=== PATIENT | female | born 1980 | race Caucasian/White ===

== ENCOUNTER 2016-11-14 11:40 | Emergency (ER) | payer MEDICAID ==
[~2016-11-14] VITALS: Ht 165.1 cm; Wt 67.8 kg
[2016-11-14] MEDS ORDERED: KETOROLAC 30 MG/1 ML IM ONE (12:00)
[2016-11-14] MEDS ORDERED: LIDOCAINE 1%, 20ML SQ ONE (12:00)
[2016-11-14] MEDS ORDERED: ONDANSETRON ODT 4 MG PO ONE (12:00)
[2016-11-14] MEDS ORDERED: BUPIVACAINE/PF-EPI 0.25% 1:200K SQ ONE (12:00)
[2016-11-14] MEDS ORDERED: BENZOCAINE 20% SPRAY 0.5ML ONE (12:12)
[2016-11-14] MEDS ORDERED: BUPIVACAINE 0.25% ONE (12:12)
[2016-11-14] MEDS ORDERED: KETOROLAC 30 MG/1 ML ONE (12:12)
[2016-11-14] MEDS ORDERED: LIDOCAINE 1%, 20ML ONE (12:13)
[2016-11-14] MEDS ORDERED: ONDANSETRON ODT 4 MG ONE (12:13)
[2016-11-14] MEDS ORDERED: BENZOCAINE 20% SPRAY 0.5ML TP ONE (12:30)
[2016-11-14 12:46] VITALS: BP 132/75
== END 2016-11-14 12:49 | disposition home or self-care (01) ==
LOC: ED 12:04
DX: K02.9 Dental caries, unspecified (principal); Z90.49 Acquired absence of other specified parts of digestive tract
CPT/HCPCS: 64400; 96372; 99284; J1885; Q0162

== ENCOUNTER 2017-01-07 18:54 | Emergency (ER) | payer MEDICAID ==
[~2017-01-07] VITALS: Ht 165.1 cm; Wt 65.9 kg
[2017-01-07] MEDS ORDERED: KETOROLAC 30 MG/1 ML IM ONE (19:30)
[2017-01-07] MEDS ORDERED: HYDROcodone/APAP 5/325 TABLET PO ONE (19:30)
[2017-01-07] MEDS ORDERED: DIAZEPAM 5 MG TABLET PO ONE (19:30)
[2017-01-07] MEDS ORDERED: DIAZEPAM 5 MG/ML, 2ML IM STA (20:11)
[2017-01-07] MEDS ORDERED: HYDROmorphone 1 MG/ML, 1ML IM STA (20:11)
[2017-01-07] MEDS ORDERED: PROMETHAZINE 25 MG/ML, 1ML IM STA (20:11)
[2017-01-07] MEDS ORDERED: HYDROmorphone 1 MG/ML, 1ML ONE (20:31)
[2017-01-07] MEDS ORDERED: KETOROLAC 30 MG/1 ML ONE (20:31)
[2017-01-07] MEDS ORDERED: DIAZEPAM 5 MG TABLET ONE (20:31)
[2017-01-07] MEDS ORDERED: PROMETHAZINE 25 MG/ML, 1ML ONE (20:33)
[2017-01-07 21:31] VITALS: BP 129/91
== END 2017-01-07 21:33 | disposition home or self-care (01) ==
LOC: ED 21:27
DX: S39.012A Strain of muscle, fascia and tendon of lower back, initial encounter (principal); N30.00 Acute cystitis without hematuria; M54.9 Dorsalgia, unspecified; G89.29 Other chronic pain; F17.210 Nicotine dependence, cigarettes, uncomplicated; X58.XXXA Exposure to other specified factors, initial encounter; Y93.89 Activity, other specified; Y99.8 Other external cause status; Y92.89 Other specified places as the place of occurrence of the external cause
CPT/HCPCS: 81001; 87086; 96372; 99284; J1170; J1885; J2550; J3360

== ENCOUNTER 2017-01-29 18:28 | Emergency (ER) | payer MEDICAID ==
[~2017-01-29] VITALS: Ht 165.1 cm; Wt 61.6 kg
[2017-01-29] MEDS ORDERED: HYDROmorphone 1 MG/ML, 1ML IM ONE (19:30)
[2017-01-29] MEDS ORDERED: KETOROLAC 30 MG/1 ML IM ONE (19:30)
[2017-01-29] MEDS ORDERED: DIAZEPAM 5 MG/ML, 2ML IM ONE (19:30)
[2017-01-29] MEDS ORDERED: PROMETHAZINE 25 MG/ML, 1ML IM ONE (19:30)
[2017-01-29] MEDS ORDERED: PROMETHAZINE 25 MG/ML, 1ML ONE (19:32)
[2017-01-29] MEDS ORDERED: DIAZEPAM 5 MG/ML, 2ML ONE ×2 (19:32→19:33)
[2017-01-29] MEDS ORDERED: KETOROLAC 30 MG/1 ML ONE ×2 (19:32→19:34)
[2017-01-29] MEDS ORDERED: HYDROmorphone 1 MG/ML, 1ML ONE (19:32)
[2017-01-29 20:37] VITALS: BP 119/71
== END 2017-01-29 20:39 | disposition home or self-care (01) ==
LOC: ED 20:37
DX: G89.29 Other chronic pain (principal); M54.9 Dorsalgia, unspecified
CPT/HCPCS: 96372; 99284; J1170; J1885; J2550; J3360

== ENCOUNTER 2017-06-11 10:59 | Emergency (ER) | payer MEDICAID ==
[~2017-06-11] VITALS: Ht 165.1 cm; Wt 65.4 kg
[2017-06-11 11:02] VITALS: BP 160/105
[2017-06-11] MEDS ORDERED: BUPIVACAINE/PF 0.25% INFIL ONE (11:30)
[2017-06-11] MEDS ORDERED: BUPIVACAINE 0.25% ONE (11:35)
[2017-06-11] MEDS ORDERED: KETOROLAC 30 MG/1 ML IM ONE (12:30)
[2017-06-11] MEDS ORDERED: KETOROLAC 30 MG/1 ML ONE (12:37)
== END 2017-06-11 12:30 | disposition home or self-care (01) ==
LOC: ED 12:24
DX: K02.9 Dental caries, unspecified (principal); Z98.84 Bariatric surgery status; Z90.49 Acquired absence of other specified parts of digestive tract; Z88.5 Allergy status to narcotic agent
CPT/HCPCS: 64400; 96372; 99284; J1885; J3490